=== PATIENT | female | born 1980 | race Hispanic/Latino ===

== ENCOUNTER 2017-09-10 16:51 | Emergency (ER) | payer MEDICAID ==
[2017-09-10 16:51] VITALS: BMI 33.6
[2017-09-10 17:05] VITALS: RESP 19
[2017-09-10 17:34] VITALS: BP 124/85; PULSE 73; TEMP 98.6; O2SAT 100
--- NOTE | 2017-09-10 18:22 | ED PDOC ---
HPI: Female Pain Time Seen by Provider: 09/10/17 17:41 Chief Complaint (Nursing): Female Genitourinary Chief Complaint (Provider): dysuria History Per: Patient Additional Complaint(s): 36-year-old female presents to emergency department with dysuria, urinary frequency, urgency and suprapubic pain 1 week. Patient denies nausea, vomiting , diarrhea or constipation. No flank or back pain. Patient denies vaginal bleeding or vaginal discharge and denies concern for STD. PMD: none Past Medical History Reviewed: Historical Data, Nursing Documentation, Vital Signs Vital Signs: Last Vital Signs Temp 98.6 F 09/10/17 17:02 Pulse 73 09/10/17 17:02 Resp 19 09/10/17 17:02 BP 124/85 09/10/17 17:02 Pulse Ox 100 09/10/17 17:02 - Medical History PMH: Anemia, Back Problems (herniated disc) - Family History Family History: States: No Known Family Hx - Living Arrangements Living Arrangements: With Family - Social History Current smoker - smoking cessation education provided: No Alcohol: None Drugs: Denies - Home Medications Home Medications: Ambulatory Orders Medication Instructions Recorded Naproxen 375 mg PO Q8 PRN #21 tab 08/26/15 Naproxen 500 mg PO BID #30 tab 05/04/16 Tramadol HCl [Ultram] 50 mg PO Q6 #15 tab 05/04/16 Cyclobenzaprine [Cyclobenzaprine 10 mg PO BID #15 tab 08/26/16 HCl] Ibuprofen [Motrin Tab] 600 mg PO Q6 #30 tab 08/26/16 Potassium Chloride [K-Dur 20] 20 meq PO DAILY #30 08/26/16 Nitrofurantoin Macrocrystals 100 mg PO BID #14 cap 09/10/17 [Macrobid] - Allergies Allergies/Adverse Reactions: Allergies Allergy/AdvReac Type Severity Reaction Status Date / Time No Known Allergies Allergy Verified 08/26/16 18:38 Review of Systems ROS Statement: Except As Marked, All Systems Reviewed And Found Negative Constitutional: Negative for: Fever, Chills Gastrointestinal: Positive for: Abdominal Pain (suprapubic). Negative for: Nausea, Vomiting Genitourinary Female: Positive for: Dysuria, Frequency. Negative for: Incontinence, Hematuria, Vaginal Discharge, Vaginal Bleeding Musculoskeletal: Negative for: Back Pain Neurological: Negative for: Dizziness Physical Exam - Reviewed Nursing Documentation Reviewed: Yes Vital Signs Reviewed: Yes - Physical Exam Appears: Positive for: Well, Non-toxic, No Acute Distress Head Exam: Positive for: ATRAUMATIC Skin: Positive for: Normal Color. Negative for: Rash Cardiovascular/Chest: Positive for: Regular Rate, Rhythm Respiratory: Positive for: Normal Breath Sounds Gastrointestinal/Abdominal: Positive for: Soft. Negative for: Tenderness, Distended, Guarding, Rebound Back: Negative for: L CVA Tenderness, R CVA Tenderness Neurologic/Psych: Positive for: Alert, Oriented - Laboratory Results Urine POC: Negative Urine dip results: Negative for: Leukocyte Esterase, Blood, Nitrate, Ketones, Glucose, Bilirubin, Protein - ECG O2 Sat by Pulse Oximetry: 100 Pulse Ox Interpretation: Normal Medical Decision Making Medical Decision Makin36 year old with dysuria Plan: Urine dip Urine test Urine culture CHL/GC culture Prescription for Macrobid provided for dysuria symptoms. Cultures were sent. Patient was advised to drink plenty of fluids and take meds as directed. Disposition - Clinical Impression Clinical Impression: Dysuria - Patient ED Disposition Is Patient to be Admitted: No Counseled Patient/Family Regarding: Studies Performed, Diagnosis, Need For Followup, Rx Given - Disposition Referrals: [facility] [Outside] Disposition: Routine/Home Disposition Time: 18:23 Condition: STABLE Additional Instructions: Take prescription meds as directed. Drink plenty of fluids. Follow up with clinic or primary doctor in 2-3 days. Prescriptions: Nitrofurantoin Macrocrystals [Macrobid] 100 mg PO BID #14 cap Instructions: Dysuria, Adult (DC)
== END 2017-09-10 18:28 | disposition home or self-care (01) ==
LOC: H.ER 16:51 → SUPCPDRO 16:51 → H.ER 18:28
DX: R30.0 Dysuria (principal)

== ENCOUNTER 2017-09-22 19:04 | Emergency (ER) | payer MEDICAID ==
[2017-09-22 19:05] VITALS: BMI 33.6
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
[2017-09-22 19:56] VITALS: BP 112/70; PULSE 80; RESP 16; TEMP 98.2; O2SAT 98
== END 2017-09-22 21:00 | disposition home or self-care (01) ==
LOC: H.ER 19:04
DX: M46.1 Sacroiliitis, not elsewhere classified (principal); E66.9 Obesity, unspecified
CPT/HCPCS: 81025; 87086; 96372; 99282; J1885

== ENCOUNTER 2018-08-03 21:52 | Emergency (ER) | payer MEDICAID, OTHER ==
[2018-08-03 21:59] VITALS: BMI 36.3
[2018-08-03 22:02] VITALS: BP 115/75; PULSE 86; RESP 18; TEMP 98.5; O2SAT 98
--- NOTE | 2018-08-03 22:44 | ED PDOC ---
HPI: General Adult Time Seen by Provider: 08/03/18 22:43 Chief Complaint (Nursing): Cough, Cold, Congestion Chief Complaint (Provider): cough/fever/bodyaches History Per: Patient (37 y/o female with cough/bodyaches/uri x 1 week. Denies any vomiting/diarrhea. Has tried dayquil/nyquil without relief.) Past Medical History Reviewed: Historical Data, Nursing Documentation, Vital Signs Vital Signs: Last Vital Signs Temp 98.5 F 08/03/18 21:59 Pulse 86 08/03/18 21:59 Resp 18 08/03/18 21:59 BP 115/75 08/03/18 21:59 Pulse Ox 98 08/03/18 21:59 - Medical History PMH: Anemia, Back Problems (herniated disc) - Family History Family History: States: Unknown Family Hx - Immunization History Hx Tetanus Toxoid Vaccination: No Hx Influenza Vaccination: No Hx Pneumococcal Vaccination: No - Home Medications Home Medications: Ambulatory Orders Medication Instructions Recorded Naproxen 375 mg PO Q8 PRN #21 tab 08/26/15 Naproxen 500 mg PO BID #30 tab 05/04/16 Tramadol HCl [Ultram] 50 mg PO Q6 #15 tab 05/04/16 Cyclobenzaprine [Cyclobenzaprine 10 mg PO BID #15 tab 08/26/16 HCl] Ibuprofen [Motrin Tab] 600 mg PO Q6 #30 tab 08/26/16 Potassium Chloride [K-Dur 20] 20 meq PO DAILY #30 08/26/16 Nitrofurantoin Macrocrystals 100 mg PO BID #14 cap 09/10/17 [Macrobid] Meloxicam [Mobic] 15 mg PO DAILY #30 tab 09/22/17 Guaifenesin 400 mg PO Q6 PRN #20 tablet 08/03/18 Promethazine/Codeine 5 ml PO Q12 PRN #100 ml 08/03/18 [Codeine/Promethazine 10 MG/5 Ml-6.25 MG/5 Ml] Pseudoephedrine [Sudafed Tab] 60 mg PO Q6 PRN #24 tab 08/03/18 - Allergies Allergies/Adverse Reactions: Allergies Allergy/AdvReac Type Severity Reaction Status Date / Time No Known Allergies Allergy Verified 08/03/18 21:59 Review of Systems ROS Statement: Except As Marked, All Systems Reviewed And Found Negative Constitutional: Positive for: Fever Respiratory: Positive for: Cough Physical Exam - Reviewed Nursing Documentation Reviewed: Yes Vital Signs Reviewed: Yes - Physical Exam Appears: Positive for: Well, Non-toxic, No Acute Distress Head Exam: Positive for: ATRAUMATIC, NORMAL INSPECTION, NORMOCEPHALIC Skin: Positive for: Normal Color, Warm, DRY Eye Exam: Positive for: EOMI, Normal appearance, PERRL ENT: Positive for: Normal ENT Inspection Neck: Positive for: Normal, Painless ROM Cardiovascular/Chest: Positive for: Regular Rate, Rhythm Respiratory: Positive for: CNT, Normal Breath Sounds Gastrointestinal/Abdominal: Positive for: Normal Exam, Soft Back: Positive for: Normal Inspection Extremity: Positive for: Normal ROM Neurologic/Psych: Positive for: Alert, Oriented - ECG O2 Sat by Pulse Oximetry: 98 Disposition - Clinical Impression Clinical Impression: Cough - Patient ED Disposition Is Patient to be Admitted: No - Disposition Disposition: Routine/Home Disposition Time: 23:33 Condition: FAIR Prescriptions: Guaifenesin 400 mg PO Q6 PRN #20 tablet PRN Reason: Cough Promethazine/Codeine [Codeine/Promethazine 10 MG/5 Ml-6.25 MG/5 Ml] 5 ml PO Q12 PRN #100 ml PRN Reason: Cough Pseudoephedrine [Sudafed Tab] 60 mg PO Q6 PRN #24 tab PRN Reason: Nasal Congestion Instructions: Cough in Adults
== END 2018-08-03 23:39 | disposition home or self-care (01) ==
LOC: H.ER 21:52
DX: R05 Cough (principal)

== ENCOUNTER 2018-09-11 13:04 | Emergency (ER) | payer MEDICAID, OTHER ==
[2018-09-11 13:04] VITALS: BMI 36.3
[2018-09-11 13:16] VITALS: PULSE 74; RESP 16; TEMP 98.2; O2SAT 100
[2018-09-11] MEDS ORDERED: Lidocaine 5% Patch TD STA (13:36)
--- NOTE | 2018-09-11 13:39 | ED PDOC ---
Lower Extremity Pain/Injury Time Seen by Provider: 09/11/18 13:16 Chief Complaint (Nursing): Lower Extremity Problem/Injury Chief Complaint (Provider): Knee Pain, Weakness History Per: Patient History/Exam Limitations: no limitations Onset/Duration Of Symptoms: Days (x3 weeks) Current Symptoms Are (Timing): Still Present Additional Complaint(s): 37 year old female presents to the ED for evaluation of atraumatic left knee pain localized to the back of the knee for the past three weeks, worse with ambulation. Patient reports that she was initially seen at [place] on 08/21 where she had a normal XR and US done which showed no blood clots. She notes having a follow up appointment at [facility] on 09/25, but the pain is persistent and unrelieved with Naproxen, last taken yesterday. Additionally, patient states she feels weak and light headed, but is on the last 2-3 days of menstruating and these symptoms are not new for her during her cycle. She reports having a histo ry of anemia, and also woke up this morning with an atraumatic bruise on her left upper arm. Otherwise, denies chest pain, shortness of breath, history of DVT or PE, head injury, numbness / tingling in extremities, and previous blood transfusion. PMD: Sander Romero Past Medical History Reviewed: Historical Data, Nursing Documentation, Vital Signs Vital Signs: Last Vital Signs Temp 98.2 F 09/11/18 13:12 Pulse 74 09/11/18 13:12 Resp 16 09/11/18 13:12 BP 112/72 09/11/18 13:12 Pulse Ox 100 09/11/18 13:12 - Medical History PMH: Anemia, Back Problems (herniated disc) - Surgical History Other surgeries: rt breast cystectomy. right rotator cuff repair 2018 - Family History Family History: States: Unknown Family Hx - Social History Current smoker - smoking cessation education provided: Yes Alcohol: Social Drugs: Denies - Immunization History Hx Tetanus Toxoid Vaccination: No Hx Influenza Vaccination: No Hx Pneumococcal Vaccination: No - Home Medications Home Medications: Ambulatory Orders Medication Instructions Recorded RX: Naproxen 375 mg PO Q8 PRN #21 tab 08/26/15 RX: Naproxen 500 mg PO BID #30 tab 05/04/16 Tramadol HCl [Ultram] 50 mg PO Q6 #15 tab 05/04/16 Cyclobenzaprine [Cyclobenzaprine 10 mg PO BID #15 tab 08/26/16 HCl] Potassium Chloride [K-Dur 20] 20 meq PO DAILY #30 08/26/16 RX: Ibuprofen [Motrin Tab] 600 mg PO Q6 #30 tab 08/26/16 Nitrofurantoin Macrocrystals 100 mg PO BID #14 cap 09/10/17 [Macrobid] RX: Meloxicam [Mobic] 15 mg PO DAILY #30 tab 09/22/17 Promethazine/Codeine 5 ml PO Q12 PRN #100 ml 08/03/18 [Codeine/Promethazine 10 MG/5 Ml-6.25 MG/5 Ml] RX: Guaifenesin 400 mg PO Q6 PRN #20 tablet 08/03/18 RX: Pseudoephedrine [Sudafed Tab] 60 mg PO Q6 PRN #24 tab 08/03/18 Meloxicam [Mobic] 1 - 2 tab PO DAILY PRN #12 tab 09/11/18 - Allergies Allergies/Adverse Reactions: Allergies Allergy/AdvReac Type Severity Reaction Status Date / Time No Known Allergies Allergy Verified 09/11/18 13:12 Wells Criteria for PE - Wells Criteria for Pulmonary Embolism Clinical Signs and Symptoms of DVT: No P.E is #1 Diagnosis, or Equally Likely: No Heart Rate >100: No Immobilization at least 3 days;Surgery previous 4 weeks: No Previous, objectively diagnosed PE or DVT: No Hemoptysis: No Malignancy w/treatment within 6 months, or palliative: No Total Score: 0 Review of Systems ROS Statement: Except As Marked, All Systems Reviewed And Found Negative Constitutional: Positive for: Weakness (generalized) Cardiovascular: Positive for: Light Headedness. Negative for: Chest Pain Respiratory: Negative for: Shortness of Breath Musculoskeletal: Positive for: Other (localized pain behind left knee, atraumatic) Skin: Positive for: Bruising (left upper arm) Neurological: Negative for: Numbness (or tingling in extremities) Physical Exam - Reviewed Nursing Documentation Reviewed: Yes Vital Signs Reviewed: Yes - Physical Exam Appears: Positive for: No Acute Distress Head Exam: Positive for: ATRAUMATIC, NORMOCEPHALIC Skin: Positive for: Normal Color (except on small ecchymotic area with tenderness to right upper arm), Warm Eye Exam: Positive for: Normal appearance Neck: Positive for: Normal, Painless ROM, Supple Cardiovascular/Chest: Positive for: Regular Rate, Rhythm Respiratory: Positive for: Normal Breath Sounds. Negative for: Respiratory Distress Pulses-Dorsalis Pedis (L): 2+ Pulses-Dorsalis Pedis (R): 2+ Gastrointestinal/Abdominal: Positive for: Normal Exam, Soft. Negative for: Tenderness Back: Positive for: Normal Inspection Extremity: Positive for: Normal ROM (full ROM actively to bilateral knees). Negative for: Tenderness (to left knee), Calf Tenderness (bilaterally), Deformity (to left knee), Swelling (to left knee) Neurologic/Psych: Positive for: Alert, Oriented (x3). Negative for: Motor/Sensory Deficits - Laboratory Results Result Diagrams: 09/11/18 13:35 09/11/18 13:35 - ECG O2 Sat by Pulse Oximetry: 100 (RA) Pulse Ox Interpretation: Normal Medical Decision Making Medical Decision Making: Time: 1328 Initial Impression: knee pain, weakness, hx of anemia Initial Plan: --Type and screen --CMP --Creatinine phosphokinase --HCG, qualitative --Magnesium chemistry --CBC with differential --PT/ INR --PTT --Lidoderm 1 ea TD --Tylenol 975mg PO --Reevaluation 1428 Toradol 15mg IM ordered secondary to patient's persistent pain. 1445 On reevaluation, patient reports improvement in pain. She additionally notes that her knee pain began 2-3 years ago s/p an injury to it and was initially told to follow up with ortho, but never did. Patient instructed to follow up with her already scheduled [facility] appointment, or with ortho is symptoms persist. All questions answered at this time and patient verbalized agreement of plan. Stable for discharge. Scribe Attestation: Documented by Rebekah Judd, acting as a scribe for David Schmidt PA-C. Provider Scribe Attestation: All medical record entries made by the Scribe were at my direction and personally dictated by me. I have reviewed the chart and agree that the record accurately reflects my personal performance of the history, physical exam, medical decision making, and the department course for this patient. I have also personally directed, reviewed, and agree with the discharge instructions and disposition. Disposition - Clinical Impression Clinical Impression: Knee pain - Patient ED Disposition Is Patient to be Admitted: No - Disposition Referrals: [facility] [Outside] [facility] [Outside] Mario Alberto Britton III, MD [Staff Provider] - Disposition: Routine/Home Disposition Time: 14:45 Condition: STABLE Additional Instructions: KIRAN SALAZAR, thank you for letting us take care of you today. Your provider was Conor Beltran MD and you were treated for LT LEG PAIN. The emergency medical care you received today was directed at your acute symptoms. If you were prescribed any medication, please fill it and take as directed. It may take navdeep ral days for your symptoms to resolve. Return to the Emergency Department if your symptoms worsen, do not improve, or if you have any other problems. Please contact your doctor or call one of the physicians/clinics you have been referred to that are listed on the Patient Visit Information form that is included in your discharge packet. Bring any paperwork you were given at discharge with you along with any medications you are taking to your follow up visit. Our treatment cannot replace ongoing medical care by a primary care provider outside of the emergency department. Thank you for allowing the [facility] team to be part of your care today. If you had an X-Ray or CT scan: A Radiologist will review the ED reading if any change in treatment is needed we will contact you. If you had a blood, urine, or wound culture: It will take several days for the results, if any change in treatment is needed we will contact you. If you had an STI test: It will take 48 hours for the results. Please call after 1 week if you have not heard back. Prescriptions: Meloxicam [Mobic] 1 - 2 tab PO DAILY PRN #12 tab PRN Reason: Pain Instructions: Knee Pain (DC) Forms: [facility] (Czech), [facility] ED School/Work Excuse
[2018-09-11] MEDS ORDERED: Lidocaine 5% Patch TD ONE (13:48)
[2018-09-11 14:27] LABS: BASO # 0.1 K/uL (0.0-0.2); BASO % 0.8 % (0.0-2.0); EOS # 0.1 K/uL (0.0-0.7); EOS % 2.2 % (0.0-4.0); HEMOGLOBIN 11.8 g/dL (12.0-16.0); LYMPH # 1.8 K/uL (1.0-4.3); MEAN CORPUSCULAR HEMOGLOBIN 27.7 pg (27.0-31.0); MEAN CORPUSCULAR HGB CONC 32.6 g/dL (33.0-37.0); MEAN PLATELET VOLUME 8.7 fl (7.2-11.7); MONO # 0.5 K/uL (0.0-0.8); MONO % 7.2 % (0.0-10.0); NEUT % 61.8 % (50.0-75.0); RBC 4.24 Mil/uL (3.80-5.20); RED CELL DISTRIBUTION WIDTH 14.3 % (11.5-14.5); WHITE BLOOD COUNT 6.5 K/uL (4.8-10.8)
[2018-09-11 14:40] LABS: INR 1.1; PROTHROMBIN TIME 12.1 Seconds (9.8-13.1)
[2018-09-11 14:43] LABS: PARTIAL THROMBOPLASTIN TIME 32.8 Seconds (25.6-37.1)
[2018-09-11 15:09] LABS: ALB/GLOB RATIO 0.9 (1.0-2.1); ALBUMIN 3.9 g/dL (3.5-5.0); ALT/SGPT 18 U/L (9-52); AST/SGOT 23 U/L (14-36); BLOOD UREA NITROGEN 22 mg/dl (7-17); CALCIUM 9.2 mg/dL (8.4-10.2); GFR NON-AFRICAN AMERICAN > 60
[2018-09-11] MEDS ORDERED: Hydrogen Peroxide 3% Soln (480ml) TP ONE (15:57)
[2018-09-11 16:11] VITALS: BP 121/78
== END 2018-09-11 16:15 | disposition home or self-care (01) ==
LOC: H.ER 13:04
DX: M25.562 Pain in left knee (principal); F17.200 Nicotine dependence, unspecified, uncomplicated
CPT/HCPCS: 80053; 82550; 83735; 84703; 85025; 85610; 85730; 86850; 86900; 96372; 99283; J1885

== ENCOUNTER 2018-10-21 22:59 | Emergency (ER) | payer OTHER ==
[2018-10-21 23:03] VITALS: BMI 36.5
[2018-10-21 23:06] VITALS: PULSE 76; RESP 18; TEMP 97.5; O2SAT 98
--- NOTE | 2018-10-22 00:31 | ED PDOC ---
Upper Extremity Pain/Injury Time Seen by Provider: 10/21/18 23:13 Chief Complaint (Nursing): Upper Extremity Problem/Injury Chief Complaint (Provider): Left Arm Pain History Per: Patient History/Exam Limitations: no limitations Onset/Duration Of Symptoms: Hrs (since 230pm ) Current Symptoms Are (Timing): Still Present Quality: Sharp, Tightness Severity: Severe Pain Scale Rating Of: 10 Exacerbating Factor(s): Movement Additional Complaint(s): Patient is a 38 year old female who presents to the ED for evaluation of diffuse left arm pain ongoing since 230pm. Patient reports sudden onset pain while blow drying her hair. Patient denies any trauma or falls; no previous episodes of similar symptoms. Patient reports she was seen at [facility] before arrival and had an extensive workup including head CT, EKG, blood work including Troponins which was all unremarkable. Patient was treated with Tylenol, Motrin and Valium and discharged with the diagnosis of muscle spasm. Patient reports additionally taking one tablet of Flexeril before arrival at [facility] ED. Patient states pain is 10/10 and cannot be localized. Denies: fever, rash, SOB, chest pain, abdominal pain, N/V/D, recent travel, headache, dizziness. PMD: Erinn Reilly LMP: 10/19/18 Past Medical History Reviewed: Historical Data, Nursing Documentation, Vital Signs Vital Signs: Last Vital Signs Temp 97.5 F L 10/21/18 23:03 Pulse 76 10/21/18 23:03 Resp 18 10/21/18 23:03 BP 143/92 H 10/21/18 23:03 Pulse Ox 98 10/21/18 23:03 - Medical History PMH: Anemia, Back Problems (herniated disc) - Surgical History Other surgeries: right rotator cuff repair - Family History Family History: States: Unknown Family Hx - Living Arrangements Living Arrangements: With Family - Home Medications Home Medications: Ambulatory Orders Medication Instructions Recorded Naproxen 375 mg PO Q8 PRN #21 tab 08/26/15 Naproxen 500 mg PO BID #30 tab 05/04/16 Tramadol HCl [Ultram] 50 mg PO Q6 #15 tab 05/04/16 Cyclobenzaprine [Cyclobenzaprine 10 mg PO BID #15 tab 08/26/16 HCl] Ibuprofen [Motrin Tab] 600 mg PO Q6 #30 tab 08/26/16 Potassium Chloride [K-Dur 20] 20 meq PO DAILY #30 08/26/16 Nitrofurantoin Macrocrystals 100 mg PO BID #14 cap 09/10/17 [Macrobid] Meloxicam [Mobic] 15 mg PO DAILY #30 tab 09/22/17 Guaifenesin 400 mg PO Q6 PRN #20 tablet 08/03/18 Promethazine/Codeine 5 ml PO Q12 PRN #100 ml 08/03/18 [Codeine/Promethazine 10 MG/5 Ml-6.25 MG/5 Ml] Pseudoephedrine [Sudafed Tab] 60 mg PO Q6 PRN #24 tab 08/03/18 Meloxicam [Mobic] 1 - 2 tab PO DAILY PRN #12 tab 09/11/18 Acetaminophen [Acetaminophen 8 650 mg PO Q8 PRN #21 tablet.er 10/22/18 Hour] Acyclovir [Zovirax] 800 mg PO 5XD #35 tablet 10/22/18 Lidocaine 5% [Lidoderm] 1 ea TOP Q12 PRN #10 patch 10/22/18 Naproxen 500 mg PO BID PRN #20 tab 10/22/18 traMADol [Ultram] 50 mg PO Q8 PRN #12 tab 10/22/18 - Allergies Allergies/Adverse Reactions: Allergies Allergy/AdvReac Type Severity Reaction Status Date / Time No Known Allergies Allergy Verified 10/21/18 23:03 Review of Systems ROS Statement: Except As Marked, All Systems Reviewed And Found Negative Constitutional: Negative for: Fever Cardiovascular: Negative for: Chest Pain Respiratory: Negative for: Cough Gastrointestinal: Negative for: Vomiting, Abdominal Pain, Diarrhea Musculoskeletal: Positive for: Arm Pain (left) Skin: Negative for: Rash Neurological: Negative for: Weakness, Numbness Physical Exam - Reviewed Nursing Documentation Reviewed: Yes Vital Signs Reviewed: Yes - Physical Exam Appears: Positive for: Well, Non-toxic, Uncomfortable Head Exam: Positive for: ATRAUMATIC, NORMOCEPHALIC Skin: Positive for: Normal Color, Warm, Dry. Negative for: Rash Eye Exam: Positive for: Normal appearance ENT: Positive for: Normal ENT Inspection Neck: Positive for: Painless ROM, Supple Cardiovascular/Chest: Positive for: Regular Rate, Rhythm Respiratory: Positive for: Normal Breath Sounds Pulses-Radial (L): 2+ Pulses-Radial (R): 2+ Gastrointestinal/Abdominal: Positive for: Soft. Negative for: Tenderness, Distended, Guarding Extremity: Positive for: Normal ROM (sensation intact throughout), Capillary Refill (< 2 seconds). Negative for: Tenderness, Deformity, Swelling, Other (ecchymosis) Neurological/Psych: Positive for: Awake, Alert, Oriented (x3), Gait (steady in ED) - Laboratory Results Urine POC: Negative - ECG O2 Sat by Pulse Oximetry: 98 (RA) Pulse Ox Interpretation: Normal Medical Decision Making Medical Decision Makin Initial Impression: acute arm pain Plan: -Case discussed with ED MD Beltran who recommends treatment for herpes zoster with Tramadol PO and Acyclovir PO. Recommends no imaging at this time. -Tramadol 100mg PO (not driving home) -Acyclovir 800mg PO -Re-evaluation 0100 On re-evaluation, patient reports improvement of symptoms. On exam, patient remains AAOx3, in no acute distress. Limb remains NV intact with no skin changes. Vitals stable. Lab/Diagnostic results d/w the patient in great detail. Diagnosis of acute arm pain, to consider herpes zoster d/w the patient. Based on history, exam and diagnostic results, plan will be for outpatient follow up with PMD. Patient instructed to follow-up with pmd / referral provided / the clinic in 1- 2 days without fail. Advised to take medication as prescribed. Return to the emergency room at any time for any new or worsening symptoms. Patient states she fully agrees with and understands discharge instructions. States that she agrees with the plan and disposition. Verbalized and repeated discharge instructions and plan. I have given the patient opportunity to ask any additional questions. Disposition - Clinical Impression Clinical Impression: Arm pain, left, Herpes zoster, Neuropathic pain, arm - Patient ED Disposition Is Patient to be Admitted: No Counseled Patient/Family Regarding: Studies Performed, Diagnosis, Need For Followup, Rx Given - Disposition Referrals: primary, doctor [Other] Disposition: Routine/Home Disposition Time: 01:00 Condition: STABLE Additional Instructions: The emergency medical care you received today was directed at your acute symptoms. If you were prescribed any medication, please fill it and take as directed. It may take several days for your symptoms to resolve. Return to the Emergency Department if your symptoms worsen, do not improve, or if you have any other problems. Please contact your doctor in 2 days for re-evaluation and follow up / or call one of the physicians/clinics you have been referred to that are listed on the Patient Visit Information form that is included in your discharge packet. Bring any paperwork you were given at discharge with you along with any medications you are taking to your follow up visit. Our treatment cannot replace ongoing medical care by a primary care provider (PCP) outside of the emergency department. Prescriptions: Acetaminophen [Acetaminophen 8 Hour] 650 mg PO Q8 PRN #21 tablet.er PRN Reason: Pain, Mild (1-3) Acyclovir [Zovirax] 800 mg PO 5XD #35 tablet Lidocaine 5% [Lidoderm] 1 ea TOP Q12 PRN #10 patch PRN Reason: Pain, Moderate (4-7) Naproxen 500 mg PO BID PRN #20 tab PRN Reason: Pain, Moderate (4-7) traMADol [Ultram] 50 mg PO Q8 PRN #12 tab PRN Reason: Pain, Severe (8-10) Instructions: Shingles, Neuropathic Pain, Muscle and Bone Pain (DC) Forms: [employer] (Hungarian), [facility] ED School/Work Excuse Print Language: OCCITAN - POA Present On Arrival: None
[2018-10-22 00:47] VITALS: BP 130/78
== END 2018-10-22 00:44 | disposition home or self-care (01) ==
LOC: H.ER 22:59
DX: M79.602 Pain in left arm (principal); B02.29 Other postherpetic nervous system involvement; B02.9 Zoster without complications

== ENCOUNTER 2018-10-22 16:53 | Observation (INO) | payer SELFPAY ==
[2018-10-22 16:54] VITALS: BMI 36.5
[2018-10-22] MEDS ORDERED: Lidocaine 5% Patch TD STA (18:04)
[2018-10-22] MEDS ORDERED: Lidocaine 5% Patch TD ONE (19:00)
--- NOTE | 2018-10-22 19:04 | CT ---
Date of service: 10/22/2018 PROCEDURE: CT Cervical Spine without contrast HISTORY: L neck/arm pain COMPARISON: None. TECHNIQUE: Axial computed tomography images were obtained of the cervical spine without the use of intravenous contrast. Coronal and sagittal reformatted images were created and reviewed. Radiation dose: Total exam DLP = 307.16 mGy-cm. This CT exam was performed using one or more of the following dose reduction techniques: Automated exposure control, adjustment of the mA and/or kV according to patient size, and/or use of iterative reconstruction technique. FINDINGS: VERTEBRAE: No fracture. Normal alignment. No destructive bony lesion. DISCS/SPINAL CANAL/NEURAL FORAMINA: No significant central canal or neural foraminal stenosis. Discs heights are grossly preserved. PARASPINAL SOFT TISSUES: Unremarkable. OTHER FINDINGS: None. IMPRESSION: Unremarkable CT of the cervical spine.
--- NOTE | 2018-10-22 19:05 | ED PDOC ---
HPI: Chest Pain Time Seen by Provider: 10/22/18 17:37 Chief Complaint (Nursing): Chest Pain Chief Complaint (Provider): Neck pain History Per: Patient History/Exam Limitations: no limitations Onset/Duration Of Symptoms: Days (X1) Additional Complaint(s): 38 year old female patient with no significant past medical history presents to the ED with left arm pain onset yesterday at 14:30 pm. Patient states that she has pain down her left arm and numbness in all 5 fingers. This is the patient's third ED visit in two days. Patient came here and then went to [facility] where she was prescribed Tylenol, Motrin, flexeril. Patient reports that she took valium with no relief. Patient reports that she took muscle relaxers that did not help her sleep and she still has a tingling feeling in her hand. Patient reports that she took naproxen today with no relief. She was prescribed acyclovir but denies taking it. PMD: [facility] Past Medical History Reviewed: Historical Data Vital Signs: Last Vital Signs Temp 98.0 F 10/22/18 17:06 Pulse 77 10/22/18 17:06 Resp 18 10/22/18 17:06 BP 103/55 L 10/22/18 17:06 Pulse Ox 100 10/22/18 17:06 SANTO Report Viewed: Yes - Medical History PMH: Anemia, Back Problems (herniated disc) - Surgical History Other surgeries: right rotator cuff surgery - Family History Family History: States: No Known Family Hx - Immunization History Hx Tetanus Toxoid Vaccination: No Hx Influenza Vaccination: No Hx Pneumococcal Vaccination: No - Home Medications Home Medications: Ambulatory Orders Medication Instructions Recorded Cyclobenzaprine [Flexeril] 5 mg PO BID #8 tab 10/23/18 Naproxen 250 mg PO Q12 #14 tablet 10/23/18 - Allergies Allergies/Adverse Reactions: Allergies Allergy/AdvReac Type Severity Reaction Status Date / Time No Known Allergies Allergy Verified 10/22/18 17:00 Review of Systems ROS Statement: Except As Marked, All Systems Reviewed And Found Negative Musculoskeletal: Positive for: Neck Pain (Left ), Shoulder Pain (left), Arm Pain (left ) Neurological: Positive for: Numbness (in left hand fingers) Physical Exam - Reviewed Nursing Documentation Reviewed: Yes Vital Signs Reviewed: Yes - Physical Exam Appears: Positive for: Well, Non-toxic, No Acute Distress Head Exam: Positive for: ATRAUMATIC, NORMAL INSPECTION, NORMOCEPHALIC Skin: Positive for: Normal Color, Warm, Dry Eye Exam: Positive for: Normal appearance, EOMI, PERRL ENT: Positive for: Normal ENT Inspection Neck: Positive for: Normal, Painless ROM, Supple Cardiovascular/Chest: Positive for: Regular Rate, Rhythm. Negative for: Murmur Respiratory: Positive for: Normal Breath Sounds. Negative for: Respiratory Distress Gastrointestinal/Abdominal: Positive for: Normal Exam, Soft Back: Positive for: Normal Inspection, Other (no midline tenderness). Negative for: L CVA Tenderness, R CVA Tenderness Extremity: Positive for: Tenderness (left neck to left shoulder ), Other (Full range of motion ). Negative for: Pedal Edema, Deformity Neurological/Psych: Positive for: Awake, Alert, Oriented (X3). Negative for: Motor/Sensory Deficits - Laboratory Results Result Diagrams: 10/22/18 22:25 10/22/18 22:25 - ECG O2 Sat by Pulse Oximetry: 100 (RA) Pulse Ox Interpretation: Normal Medical Decision Making Medical Decision Making: Time: 17:37 Initial Impression: muscle spasm Plan: -Cervical spine CT w/o contrast -Electrocardiogram -ED Urine -Lidocaine 5% 1 ea TD -re-evaluate 19:00 Patient care endorsed to Dr. Ying pending imaging and reevaluation. Scribe Attestation: Documented by James Moran, acting as a scribe for Lavonne Osborne MD Provider Scribe Attestation: All medical record entries made by the Scribe were at my direction and personally dictated by me. I have reviewed the chart and agree that the record accurately reflects my personal performance of the history, physical exam, medical decision making, and the department course for this patient. I have also personally directed, reviewed, and agree with the discharge instructions and disposition Disposition - Clinical Impression Clinical Impression: Neck pain - Disposition Disposition: Transfer of Care Disposition Time: 19:00 Condition: STABLE
--- NOTE | 2018-10-22 19:37 | ED PDOC ---
- Laboratory Results Result Diagrams: 10/22/18 22:25 10/22/18 22:25 - ECG O2 Sat by Pulse Oximetry: 100 (RA) Medical Decision Making Medical Decision Makin:00 Patient care endorsed to this provider from Dr. Osborne pending imaging and reevaluation. [id number] --Patient complains of persistent pain as this is her third visit in 24 hours. --Will admit patient for observation. Case referred to Dr. Armando, the hospitalist. --Diagnosis: chest pain and left arm myalgia, rule out zoster. Scribe Attestation: Documented by James Moran, acting as a scribe for Meño Ying MD Provider Scribe Attestation: All medical record entries made by the Scribe were at my direction and personally dictated by me. I have reviewed the chart and agree that the record accurately reflects my personal performance of the history, physical exam, medical decision making, and the department course for this patient. Disposition - Clinical Impression Clinical Impression: Chest pain - POA Present On Arrival: None - Disposition Disposition: Hospitalized as Observation Patient Disposition Time: 23:03 Condition: FAIR
[2018-10-22 22:35] LABS: BASO # 0.1 K/uL (0.0-0.2); BASO % 0.7 % (0.0-2.0); EOS # 0.3 K/uL (0.0-0.7); EOS % 3.1 % (0.0-4.0); HEMOGLOBIN 11.6 g/dL (12.0-16.0); LYMPH # 3.3 K/uL (1.0-4.3); LYMPH % 39.4 % (20.0-40.0); MEAN CELL VOLUME 85.3 fl (81.0-99.0); MEAN CORPUSCULAR HEMOGLOBIN 28.3 pg (27.0-31.0); MEAN CORPUSCULAR HGB CONC 33.2 g/dL (33.0-37.0); MEAN PLATELET VOLUME 8.3 fl (7.2-11.7); MONO # 0.6 K/uL (0.0-0.8); MONO % 7.5 % (0.0-10.0); NEUT # 4.1 K/uL (1.8-7.0); NEUT % 49.3 % (50.0-75.0); NRBC % 0.1 % (0.0-0.0); RBC 4.08 Mil/uL (3.80-5.20); RED CELL DISTRIBUTION WIDTH 14.1 % (11.5-14.5); WHITE BLOOD COUNT 8.4 K/uL (4.8-10.8)
[2018-10-22 22:47] LABS: BLOOD UREA NITROGEN 15 mg/dl (7-17); CALCIUM 9.3 mg/dL (8.4-10.2); GFR NON-AFRICAN AMERICAN > 60
--- NOTE | 2018-10-22 23:22 | CP.PCM.HP ---
History of Present Illness - History of Present Illness History of Present Illness: This is 38 y/o F with PMH of chronic anemia admitted to [facility] for evaluation and treatment of musculoskeletol pain. Patient reports 2 days hx of worsening left neck pain radiating down the left arm/shoulder. Patient reports sudden onset pain while blow drying her hair, Pain is 8-9/10, sharp, constant, radiating from left neck to left hand/finger, gets worse with certain positions/movements, associated with numbness and tingling, but denies any recent falls, trauma, weakness, headache or dizziness. Naproxen and valium helps with pain somewhat. This is her third visit to ER in last 2 days, Patient reports she was seen at [place] [facility] before arrival and had an extensive workup including head CT, EKG, blood work including Troponins which was all unremarkable. Patient denies any SOB, diaphoresis, blurred vision, abdominal pain or weakness. PMD: [facility] PMH: Anemia PSH: Skin biopsy in 2008 and R shoulder rotator cuff repaired Allg: NKDA Meds: NSAIDs SH: + Smoking 1-2 cig/day, denies alcohol or drug use FH: + Heart disease ROS: As per HPI ER COurse: VS: Stable Normal CBC/CMP and trop from 10/22/18 EKG: NSR S/p gabapentine and Morphine Present on Admission - Present on Admission Any Indicators Present on Admission: No Review of Systems - Constitutional Constitutional: absent: Headache - EENT Eyes: absent: Blurred Vision Ears: absent: Dizziness Nose/Mouth/Throat: absent: Nasal Congestion, Nose Pain, Hoarsness, Mouth Pain, Tongue Swelling - Breasts Breasts: absent: Change in Shape, Skin Changes, Swelling - Cardiovascular Cardiovascular: absent: Chest Pain (Pain radiating all over left shoulder ), Diaphoresis, Irregular Heart Rhythm, Lightheadedness, Orthopnea, Palpitations, Syncope - Respiratory Respiratory: absent: Cough, Dyspnea, Hemoptysis - Gastrointestinal Gastrointestinal: absent: Abdominal Pain - Genitourinary Genitourinary: absent: Change in Urinary Stream, Freq UTI - Musculoskeletal Musculoskeletal: Back Pain, Neck Pain, Numbness, Radiating Pain into Limb, Stiffness, Tingling. absent: Joint Swelling, Limited Range of Motion, Muscle Weakness - Integumentary Integumentary: absent: Bleeding Lesions - Neurological Neurological: Tingling. absent: Dizziness, Memory Loss, Sensory Deficit, Tremor, Vertigo, Weakness, Other Visual Disturbances - Psychiatric Psychiatric: absent: Anxiety, Hallucinations, Memory Loss - Hematologic/Lymphatic Hematologic: absent: Easy Bleeding Past Patient History - Infectious Disease Hx of Infectious Diseases: None - Past Social History Smoking Status: Light Smoker < 10 Cigarettes Daily - HEMATOLOGICAL/ONCOLOGICAL Hx Anemia: Yes - MUSCULOSKELETAL/RHEUMATOLOGICAL Hx Musculoskeletal Disorders: Yes - PSYCHIATRIC Hx Substance Use: No - SURGICAL HISTORY Hx Surgeries: Yes Other/Comment: rt breast cystectomy. right rotator cuff repair 2018 - ANESTHESIA Hx Anesthesia: Yes Hx Anesthesia Reactions: No Hx Malignant Hyperthermia: No Meds Allergies/Adverse Reactions: Allergies Allergy/AdvReac Type Severity Reaction Status Date / Time No Known Allergies Allergy Verified 10/22/18 17:00 Physical Exam - Constitutional Appears: No Acute Distress - Head Exam Head Exam: ATRAUMATIC, NORMAL INSPECTION, NORMOCEPHALIC - Eye Exam Eye Exam: EOMI, Normal appearance, PERRL Pupil Exam: NORMAL ACCOMODATION - ENT Exam ENT Exam: Mucous Membranes Moist, Normal Exam - Neck Exam Neck exam: Positive for: Full Rom, Tenderness. Negative for: Lymphadenopathy Additional comments: No skin changes, + stiffness positive spurling test - Respiratory Exam Respiratory Exam: Clear to Auscultation Bilateral, NORMAL BREATHING PATTERN. absent: Accessory Muscle Use, Chest Wall Tenderness, Decreased Breath Sounds, Prolonged Expiratory Phase, Rhonchi, Wheezes, Respiratory Distress - Cardiovascular Exam Cardiovascular Exam: REGULAR RHYTHM, +S1, +S2 - GI/Abdominal Exam GI & Abdominal Exam: Normal Bowel Sounds, Soft. absent: Tenderness - Extremities Exam Extremities exam: Positive for: normal inspection. Negative for: tenderness Additional comments: UEs: Strength 5/5, motor and sensory intact Pain with Shoulder motions - Back Exam Back exam: NORMAL INSPECTION. absent: CVA tenderness (L), CVA tenderness (R) - Neurological Exam Neurological exam: Alert, CN II-XII Intact, Oriented x3, Reflexes Normal - Psychiatric Exam Psychiatric exam: Normal Affect - Skin Skin Exam: Dry, Intact, Normal Color, Warm Results - Vital Signs Recent Vital Signs: Last Vital Signs Temp 98.0 F 10/22/18 17:06 Pulse 77 10/22/18 17:06 Resp 18 10/22/18 17:06 BP 103/55 L 10/22/18 17:06 Pulse Ox 100 10/22/18 19:37 - Labs Result Diagrams: 10/22/18 22:25 10/22/18 22:25 Labs: Laboratory Results - last 24 hr 10/22/18 10/22/18 22:25 22:25 WBC 8.4 RBC 4.08 Hgb 11.6 L Hct 34.8 MCV 85.3 MCH 28.3 MCHC 33.2 RDW 14.1 Plt Count 301 MPV 8.3 Neut % (Auto) 49.3 L Lymph % (Auto) 39.4 Preble % (Auto) 7.5 Eos % (Auto) 3.1 Baso % (Auto) 0.7 Neut # (Auto) 4.1 Lymph # (Auto) 3.3 Preble # (Auto) 0.6 Eos # (Auto) 0.3 Baso # (Auto) 0.1 Sodium 138 Potassium 4.4 Chloride 103 Carbon Dioxide 27 Anion Gap 12 BUN 15 Creatinine 0.5 L Est GFR ( Amer) > 60 Est GFR (Non-Af Amer) > 60 Random Glucose 89 Calcium 9.3 Troponin I < 0.0120 Assessment & Plan - Assessment and Plan (Free Text) Assessment: A/P: 38 y/o F with PMH of chronic anemia admitted to [facility] for evaluation and treatment of musculoskeletal pain. Left Neck/Shoulder/Arm pain and neuralgia likely due to muscle spasm vs cervical disk herniation - S/p CT C-spine: no acute changes - C/w pain management - Gabapentin 300mg BID - Lidoderm patch - Reevaluation and possible outpatient MRI Atypical Left chest pain, likely musculoskeletal, no cardiac risk and multiple ER visits with normal EKG and Trops - EKG today with NSR and negative trop x1 - C/w pain management - Out patient MRI for possible C-spine evaluation Chronic Anemia of unknown etiology - C/w outpatient management DVT ppx - Lovenox 40mg SC daily Case discussed and patient seen with Dr. Armando
[2018-10-23 08:14] VITALS: RESP 20
--- NOTE | 2018-10-23 08:42 | CARD ---
APPROVED REPORT Date of service: 10/22/2018 EKG Measurement Heart [id number] <Conclusion> Normal sinus rhythm Normal ECG
[2018-10-23] MEDS ORDERED: Enoxaparin 40 mg Syringe SC SCH (09:00)
--- NOTE | 2018-10-23 11:35 | CP.PCM.DIS ---
Provider - Provider Date of Admission: 10/22/18 22:09 Attending physician: Mp Armando MD Time Spent in preparation of Discharge (in minutes): 20 Hospital Course - Lab Results Lab Results: Most Recent Lab Values WBC 8.4 K/uL (4.8-10.8) 10/22/18: RBC 4.08 Mil/uL (3.80-5.20) 10/22/18: Hgb 11.6 g/dL (12.0-16.0) L 10/22/18: Hct 34.8 % (34.0-47.0) 10/22/18: MCV 85.3 fl (81.0-99.0) 10/22/18: MCH 28.3 pg (27.0-31.0) 10/22/18: MCHC 33.2 g/dL (33.0-37.0) 10/22/18: RDW 14.1 % (11.5-14.5) 10/22/18: Plt Count 301 K/uL (130-400) 10/22/18: MPV 8.3 fl (7.2-11.7) 10/22/18: Neut % (Auto) 49.3 % (50.0-75.0) L 10/22/18: Lymph % (Auto) 39.4 % (20.0-40.0) 10/22/18: Scott % (Auto) 7.5 % (0.0-10.0) 10/22/18: Eos % (Auto) 3.1 % (0.0-4.0) 10/22/18: Baso % (Auto) 0.7 % (0.0-2.0) 10/22/18: Neut # (Auto) 4.1 K/uL (1.8-7.0) 10/22/18: Lymph # (Auto) 3.3 K/uL (1.0-4.3) 10/22/18: Scott # (Auto) 0.6 K/uL (0.0-0.8) 10/22/18: Eos # (Auto) 0.3 K/uL (0.0-0.7) 10/22/18 22:25 Baso # (Auto) 0.1 K/uL (0.0-0.2) 10/22/18 22:25 Sodium 138 mmol/l (132-148) 10/22/18 22:25 Potassium 4.4 MMOL/L (3.6-5.0) 10/22/18 22:25 Chloride 103 mmol/L (98-107) 10/22/18 22:25 Carbon Dioxide 27 mmol/L (22-30) 10/22/18 22:25 Anion Gap 12 (10-20) 10/22/18 22:25 BUN 15 mg/dl (7-17) 10/22/18 22:25 Creatinine 0.5 mg/dl (0.7-1.2) L 10/22/18 22:25 Est GFR ( Amer) > 60 10/22/18 22:25 Est GFR (Non-Af Amer) > 60 10/22/18 22:25 Random Glucose 89 mg/dL (65-105) 10/22/18 22:25 Calcium 9.3 mg/dL (8.4-10.2) 10/22/18 22:25 Troponin I < 0.0120 ng/mL (0.00-0.120) 10/22/18 22:25 - Hospital Course Hospital Course: Pt admitted for left arm neck, shoulder and arm pain with associated numbness and tingling. CT cervical spine wnl. Pain/tingling treated with morphine 2mg, toradol 30 mg and tramadol 50 mg without relief. CBC/BMP wnl. MRI RX given for outpatient follow-up to rule out musculoskelatal. Naproxen RX given at d/c. Discharge Exam - Head Exam Head Exam: ATRAUMATIC, NORMAL INSPECTION, NORMOCEPHALIC - Eye Exam Eye Exam: Normal appearance - ENT Exam ENT Exam: Mucous Membranes Moist - Neck Exam Neck exam: Full Rom, Normal Inspection Additional comments: no tenderness or weakness - Respiratory Exam Respiratory Exam: UNREMARKABLE - Cardiovascular Exam Cardiovascular Exam: REGULAR RHYTHM - GI/Abdominal Exam GI & Abdominal Exam: Unremarkable - Extremities Exam Extremities exam: full ROM Additional comments: strength intact, lift-off test negative, neers test negative, olivares test negative, drop arm test negative - Neurological Exam Neurological exam: Alert, Normal Gait, Oriented x3 - Psychiatric Exam Psychiatric exam: Anxious - Skin Skin Exam: Normal Color Discharge Plan - Discharge Medications Prescriptions: Naproxen 250 mg PO Q12 #14 tablet - Follow Up Plan Condition: FAIR Disposition: HOME/ ROUTINE Additional Instructions: Follow-up with PMD within 1 week. Follow-up MRI, RX given.
[2018-10-23 13:51] VITALS: BP 108/69; PULSE 74; TEMP 97.7; O2SAT 100
== END 2018-10-23 13:15 | disposition home or self-care (01) ==
LOC: H.ER 16:53 → H.ERHOLD 22:09 → H.TEL 10-23 00:32
PROVIDERS: ADMIT Internal Medicine; ATTEND Internal Medicine
DX: M62.838 Other muscle spasm (principal); D64.9 Anemia, unspecified; F17.210 Nicotine dependence, cigarettes, uncomplicated
CPT/HCPCS: 72125; 80048; 81025; 84484; 85025; 93005; 96372; 96374; 96375; 96376; 99285; G0378; J1650; J1885; J2270

== ENCOUNTER 2018-11-08 18:57 | Emergency (ER) | payer SELFPAY ==
[2018-11-08 18:57] VITALS: BMI 36.5
--- NOTE | 2018-11-08 19:54 | ED PDOC ---
Upper Extremity Pain/Injury Time Seen by Provider: 11/08/18 19:28 Chief Complaint (Nursing): Chest Pain Chief Complaint (Provider): Left shoulder pain History Per: Patient History/Exam Limitations: no limitations Onset/Duration Of Symptoms: Other (several weeks) Current Symptoms Are (Timing): Still Present Additional Complaint(s): 38 y/o female, with a past medical history of anemia, presents to the ER with left shoulder pain radiating to the arm, front of the chest, and back for several weeks. Patient reports she has had several visits to the ER before and has been admitted. She has been taking Meloxicam and a muscle relaxant without significant relief. 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 Patient states pain is localized to the same area. Denies trauma or repetitive use injury. She states she is due for an MRI tomorrow. PMD: Sander Washburn Past Medical History Reviewed: Historical Data, Nursing Documentation, Vital Signs Vital Signs: Last Vital Signs Temp 98.1 F 11/08/18 19:05 Pulse 84 11/08/18 19:05 Resp 16 11/08/18 19:05 BP 146/97 H 11/08/18 19:05 Pulse Ox 100 11/08/18 19:05 - Medical History PMH: Anemia, Back Problems (herniated disc) Denies: HIV, Chronic Kidney Disease - Surgical History Surgical History: No Surg Hx - Family History Family History: States: Unknown Family Hx - Immunization History Hx Tetanus Toxoid Vaccination: No Hx Influenza Vaccination: No Hx Pneumococcal Vaccination: No - Home Medications Home Medications: Ambulatory Orders Medication Instructions Recorded Cyclobenzaprine [Flexeril] 5 mg PO BID #8 tab 10/23/18 Naproxen 250 mg PO Q12 #14 tablet 10/23/18 traMADol [Ultram] 50 mg PO TID #12 tab 11/08/18 - Allergies Allergies/Adverse Reactions: Allergies Allergy/AdvReac Type Severity Reaction Status Date / Time No Known Allergies Allergy Verified 11/08/18 19:05 Review of Systems ROS Statement: Except As Marked, All Systems Reviewed And Found Negative Musculoskeletal: Positive for: Shoulder Pain (Left shoulder pain radiating to arm, front of chest, and back). Negative for: Other (trauma) Physical Exam - Reviewed Nursing Documentation Reviewed: Yes Vital Signs Reviewed: Yes - Physical Exam Appears: Positive for: Well Head Exam: Positive for: ATRAUMATIC, NORMOCEPHALIC Skin: Positive for: Normal Color, Warm, Dry Eye Exam: Positive for: Normal appearance Extremity: Positive for: Normal ROM (Full ROM of left upper extremity), Tenderness (supraspinatus), Other (Near complete ROM of the left shoulder, limitation due to pain; (-) erythema). Negative for: Swelling Neurological/Psych: Positive for: Awake, Alert, Normal Tone, painting supervisor II-XII (intact) - ECG O2 Sat by Pulse Oximetry: 100 (RA) Pulse Ox Interpretation: Normal Medical Decision Making Medical Decision Making: Initial Impression: Musculoskeletal pain, neuralgia Initial Plan: --EKG --Morphine 4mg IM --Toradol 30mg IM Patient is already due for an MRI tomorrow so no imaging is needed at this time. Will treat symptomatically and reevaluate. 2129 Patient was starting to feel better but then became nauseated from morphine and threw up, exacerbating her shoulder pain Fluids, reglan, and morhine IV ordered 2299 Well appearing now, feeling better, tolerating PO, stable for discharge. Scribe Attestation: Documented by Rosales Acuna acting as a scribe for Prasanth Carnes MD. Provider Scribe Attestation: All medical record entries made by the Scribe were at my direction and personally dictated by me. I have reviewed the chart and agree that the record accurately reflects my personal performance of the history, physical exam, medical decision making, and the department course for this patient. I have also personally directed, reviewed, and agree with the discharge instructions and disposition. Disposition - Clinical Impression Clinical Impression: Neuropathic pain, arm - Patient ED Disposition Is Patient to be Admitted: No - Disposition Referrals: Leopoldo Quan MD [Family Provider] - Disposition: Routine/Home Disposition Time: 23:00 Condition: IMPROVED Prescriptions: traMADol [Ultram] 50 mg PO TID #12 tab Instructions: Neuropathic Pain, Opioids for Short-Term Treatment of Pain, Taking Narcotics Safely Forms: [facility] (E[place]ian)
[2018-11-08] MEDS ORDERED: Morphine 4 MG/ML VIAL ONE (19:55)
[2018-11-08] MEDS ORDERED: Morphine 4 MG/ML VIAL IM STA (20:01)
[2018-11-08] MEDS ORDERED: Sodium Chloride 0.9% 1,000 ML IV STA (21:35)
[2018-11-09 00:37] VITALS: BP 131/74; PULSE 76; RESP 16; TEMP 98.2; O2SAT 98
--- NOTE | 2018-11-09 09:40 | CARD ---
APPROVED REPORT Date of service: 11/08/2018 EKG Measurement Heart [id number] <Conclusion> Normal sinus rhythm Normal ECG
== END 2018-11-09 00:36 | disposition home or self-care (01) ==
LOC: H.ER 18:57
DX: M79.2 Neuralgia and neuritis, unspecified (principal)
CPT/HCPCS: 93005; 96372; 96374; 99284; J1885; J2270; J2765